=== PATIENT | male | born 1960 | race Caucasian/White ===

== ENCOUNTER → 2016-08-08 | Outpatient (CLI) | payer MEDICARE, OTHER | LOC: KOH-I 15:00 | DX: M25.511 Pain in right shoulder (principal); M75.111 Incomplete rotator cuff tear or rupture of right shoulder, not specified as traumatic | CPT/HCPCS: 73221 ==

== ENCOUNTER → 2020-05-06 | Outpatient (CLI) | payer MEDICARE, OTHER ==
[2020-05-06 15:47] LABS: HEMOGLOBIN 16.1 gm/dl (14.0-17.5); RED BLOOD COUNT 5.23 M/UL (4.20-5.50); WHITE BLOOD COUNT 11.6 K/UL (4.5-11.0)
== END ==
LOC: US 05-05 11:00
PROVIDERS: Internal Medicine Nephrology
DX: E78.5 Hyperlipidemia, unspecified (principal); N18.2 Chronic kidney disease, stage 2 (mild); E55.9 Vitamin D deficiency, unspecified; N28.1 Cyst of kidney, acquired; K76.0 Fatty (change of) liver, not elsewhere classified
CPT/HCPCS: 36415; 80053; 82550; 82570; 83970; 84100; 84156; 85027

== ENCOUNTER 2021-03-23 18:19 | Inpatient (IN) | payer MEDICARE, OTHER ==
[~2021-03-23] VITALS: Ht 172.7 cm; Wt 75.0 kg
[2021-03-23 19:44] LABS: HEMOGLOBIN 16.3 gm/dl (14.0-17.5); RED BLOOD COUNT 5.65 M/UL (4.20-5.50); WHITE BLOOD COUNT 10.1 K/UL (4.5-11.0)
[2021-03-23 19:52] LABS: BORDETELLA PARAPERTUSSIS Not Detected (Not Detectd); BORDETELLA PERTUSSIS Not Detected (Not Detectd); CHLAMYDIA PNEUMONIAE Not Detected (Not Detectd); CORONAVIRUS HKU1 Not Detected (Not Detectd); CORONAVIRUS NL63 Not Detected (Not Detectd); CORONAVIRUS OC43 Not Detected (Not Detectd); CORONOAVIRUS 229E Not Detected (Not Detectd); HUMAN METAPNEUMOVIRUS Not Detected (Not Detectd); HUMAN RHINOVIRUS/ENTEROVIRUS Not Detected (Not Detectd); INFLUENZA A Not Detected (Not Detectd); INFLUENZA B Not Detected (Not Detectd); MYCOPLASMA PNEUMONIAE Not Detected (Not Detectd); PARAINFLUENZA VIRUS 1 Not Detected (Not Detectd); PARAINFLUENZA VIRUS 2 Not Detected (Not Detectd); PARAINFLUENZA VIRUS 3 Not Detected (Not Detectd); PARAINFLUENZA VIRUS 4 Not Detected (Not Detectd); RESPIRATORY SYNCYTIAL VIRUS Not Detected (Not Detectd)
[2021-03-23 22:32] LABS: SARS-CoV-2 DETECTED (Not Detectd)
[2021-03-24 02:53] LABS: HEMOGLOBIN 15.5 gm/dl (14.0-17.5); RED BLOOD COUNT 5.12 M/UL (4.20-5.50); WHITE BLOOD COUNT 10.9 K/UL (4.5-11.0)
--- NOTE | 2021-03-24 03:21 | NUR ---
NOTIFIED DR MCINTYRE OF PTS TROPONIN 3.36 AND INCREASING. NO NEW ORDERS AT THIS TIME. VITALS ARE FOLLOWS. [id number].
[2021-03-24] MEDS ORDERED: HYDROCHLOROTHIA25 MG PO (12:52)
[2021-03-24] MEDS ORDERED: PLAVIX 75 MG TA75 MG PO (12:52)
[2021-03-24] MEDS ORDERED: SYNTHROID50 MCG PO (12:52)
[2021-03-24] MEDS ORDERED: TRICOR145 MG PO (12:53)
[2021-03-24] MEDS ORDERED: JANUVIA100 MG PO (12:53)
[2021-03-24] MEDS ORDERED: TRADJENTA5 MG PO (12:53)
[2021-03-24] MEDS ORDERED: NEURONTIN800 MG PO (12:54)
[2021-03-24] MEDS ORDERED: ROPINIROLE HCL4 MG PO (12:55)
[2021-03-24] MEDS ORDERED: ROPINIROLE HCL3 MG PO (12:55)
[2021-03-24] MEDS ORDERED: NORVASC10 MG PO (12:56)
[2021-03-24] MEDS ORDERED: HYDROCODON-ACE1 EAC2 PO (12:56)
[2021-03-24] MEDS ORDERED: ASPIRIN EC81 MG PO (12:56)
[2021-03-24 18:50] LABS: BUN/CREATININE RATIO 28 (0-10)
[2021-03-25 03:25] LABS: HEMOGLOBIN 14.4 gm/dl (14.0-17.5); RED BLOOD COUNT 4.97 M/UL (4.20-5.50); WHITE BLOOD COUNT 10.4 K/UL (4.5-11.0)
[2021-03-25 04:18] LABS: BUN/CREATININE RATIO 32 (0-10)
[2021-03-26 04:15] LABS: HEMOGLOBIN 13.9 gm/dl (14.0-17.5); RED BLOOD COUNT 4.87 M/UL (4.20-5.50); WHITE BLOOD COUNT 8.6 K/UL (4.5-11.0)
[2021-03-26 04:45] LABS: BUN/CREATININE RATIO 35 (0-10)
[2021-03-27 04:04] LABS: HEMOGLOBIN 12.9 gm/dl (14.0-17.5); RED BLOOD COUNT 4.42 M/UL (4.20-5.50); WHITE BLOOD COUNT 7.3 K/UL (4.5-11.0)
[2021-03-27 05:05] LABS: BUN/CREATININE RATIO 27 (0-10)
[2021-03-28 05:03] LABS: HEMOGLOBIN 14.9 gm/dl (14.0-17.5); RED BLOOD COUNT 5.06 M/UL (4.20-5.50); WHITE BLOOD COUNT 9.2 K/UL (4.5-11.0)
[2021-03-28 05:17] LABS: BUN/CREATININE RATIO 30 (0-10)
[2021-03-29 07:22] LABS: HEMOGLOBIN 15.9 gm/dl (14.0-17.5); RED BLOOD COUNT 5.35 M/UL (4.20-5.50); WHITE BLOOD COUNT 10.4 K/UL (4.5-11.0)
[2021-03-30 04:37] LABS: HEMOGLOBIN 16.1 gm/dl (14.0-17.5); RED BLOOD COUNT 5.61 M/UL (4.20-5.50)
[2021-03-31 05:36] LABS: HEMOGLOBIN 15.7 gm/dl (14.0-17.5); RED BLOOD COUNT 5.27 M/UL (4.20-5.50)
[2021-03-31 05:58] LABS: WHITE BLOOD COUNT 14.1 K/UL (4.5-11.0)
[2021-03-31 06:06] LABS: BUN/CREATININE RATIO 37 (0-10)
[2021-04-01 05:18] LABS: RED BLOOD COUNT 5.01 M/UL (4.20-5.50)
[2021-04-01 05:28] LABS: WHITE BLOOD COUNT 19.3 K/UL (4.5-11.0)
[2021-04-01 05:35] LABS: BUN/CREATININE RATIO 41 (0-10)
[2021-04-02 05:46] LABS: HEMOGLOBIN 14.8 gm/dl (14.0-17.5); RED BLOOD COUNT 4.99 M/UL (4.20-5.50)
[2021-04-02 05:50] LABS: WHITE BLOOD COUNT 28.5 K/UL (4.5-11.0)
[2021-04-02 06:09] LABS: BUN/CREATININE RATIO 36 (0-10)
[2021-04-03 05:25] LABS: HEMOGLOBIN 14.7 gm/dl (14.0-17.5); RED BLOOD COUNT 4.95 M/UL (4.20-5.50)
[2021-04-03 05:27] LABS: WHITE BLOOD COUNT 31.4 K/UL (4.5-11.0)
[2021-04-03 06:02] LABS: BUN/CREATININE RATIO 37 (0-10)
[2021-04-04 05:37] LABS: HEMOGLOBIN 15.2 gm/dl (14.0-17.5); RED BLOOD COUNT 5.18 M/UL (4.20-5.50); WHITE BLOOD COUNT 25.6 K/UL (4.5-11.0)
[2021-04-04 05:56] LABS: BUN/CREATININE RATIO 39 (0-10)
[2021-04-05 05:54] LABS: HEMOGLOBIN 14.5 gm/dl (14.0-17.5); RED BLOOD COUNT 4.84 M/UL (4.20-5.50); WHITE BLOOD COUNT 21.7 K/UL (4.5-11.0)
[2021-04-05 06:35] LABS: BUN/CREATININE RATIO 46 (0-10)
--- NOTE | 2021-04-05 17:00 | NUR ---
PT PULLED OUT DOBHOFF WITH SITTER IN ROOM, ATIVAN IV GIVEN
--- NOTE | 2021-04-05 17:30 | NUR ---
DOBHOFF REPLACED, WAITING ON XRAY REPORT
[2021-04-06 03:23] LABS: HEMOGLOBIN 14.4 gm/dl (14.0-17.5); RED BLOOD COUNT 4.89 M/UL (4.20-5.50)
[2021-04-06 03:54] LABS: BUN/CREATININE RATIO 48 (0-10)
[2021-04-09 03:09] LABS: HEMOGLOBIN 13.5 gm/dl (14.0-17.5); RED BLOOD COUNT 4.47 M/UL (4.20-5.50); WHITE BLOOD COUNT 17.4 K/UL (4.5-11.0)
[2021-04-09 03:26] LABS: BUN/CREATININE RATIO 47 (0-10)
[2021-04-10 06:27] LABS: HEMOGLOBIN 14.6 gm/dl (14.0-17.5)
[2021-04-10 06:35] LABS: RED BLOOD COUNT 5.05 M/UL (4.20-5.50); WHITE BLOOD COUNT 28.3 K/UL (4.5-11.0)
[2021-04-10 06:36] LABS: BUN/CREATININE RATIO 57 (0-10)
[2021-04-11 03:05] LABS: WHITE BLOOD COUNT 29.9 K/UL (4.5-11.0)
[2021-04-11 03:12] LABS: RED BLOOD COUNT 4.38 M/UL (4.20-5.50)
[2021-04-11 03:40] LABS: BUN/CREATININE RATIO 58 (0-10)
--- NOTE | 2021-04-11 13:23 | NUR ---
PT SOFT WRIST RESTRAINTS REMOVED AT 1030 AM. PT CALM AND RESTING.
--- NOTE | 2021-04-11 13:24 | NUR ---
1145 PT LETHARGIC, SPO2 80% ON ROOM AIR, CRACKLES NOTED BILATERALLY. PT GURGLING. PT SUCTION SMALL AMOUNT DARK SPUTUM SUCTION.NOTIFIED MD AND FAMILY OF PATIENT CONDITION CHANGES.
--- NOTE | 2021-04-11 13:26 | NUR ---
PT PASSED AT 1247 PM. FAMILY NOTIFIED. RICHARD CALLED.
== END 2021-04-11 15:18 | disposition expired | DRG 871 ==
LOC: ER1 18:19 → PROG CARE 21:10 → CDU 21:10 → CCU 21:10 → PROG CARE 23:16 → CCU 03-27 08:26 → PROG CARE 04-05 15:27
PROVIDERS: Internal Medicine; Internal Medicine Critical Care Medicine; Internal Medicine Infectious Disease; Internal Medicine Pulmonary Disease; Preventive Medicine Occupational Medicine; ADMIT Internal Medicine
PROC: 8E0ZXY6 Isolation (ICD-10-PCS; principal; 2021-03-23)
PROC: XW033E5 Introduction of Remdesivir Anti-infective into Peripheral Vein, Percutaneous Approach, New Technology Group 5 (ICD-10-PCS; 2021-03-23)
PROC: 5A0945A Assistance with Respiratory Ventilation, 24-96 Consecutive Hours, High Flow/Velocity Cannula (ICD-10-PCS; 2021-03-23)
PROC: XW033H5 Introduction of Tocilizumab into Peripheral Vein, Percutaneous Approach, New Technology Group 5 (ICD-10-PCS; 2021-03-24)
PROC: 3E0333Z Introduction of Anti-inflammatory into Peripheral Vein, Percutaneous Approach (ICD-10-PCS; 2021-03-24)
PROC: 5A09457 Assistance with Respiratory Ventilation, 24-96 Consecutive Hours, Continuous Positive Airway Pressure (ICD-10-PCS; 2021-03-26)
PROC: B24BZZZ Ultrasonography of Heart with Aorta (ICD-10-PCS; 2021-03-29)
PROC: 0DH67UZ Insertion of Feeding Device into Stomach, Via Natural or Artificial Opening (ICD-10-PCS; 2021-03-30)
PROC: 3E0G76Z Introduction of Nutritional Substance into Upper GI, Via Natural or Artificial Opening (ICD-10-PCS; 2021-03-30)
DX: A41.89 Other specified sepsis (principal); U07.1 COVID-19; J12.82 Pneumonia due to coronavirus disease 2019; Z66 Do not resuscitate; I21.A1 Myocardial infarction type 2; J80 Acute respiratory distress syndrome; J15.9 Unspecified bacterial pneumonia; B37.1 Pulmonary candidiasis; G93.41 Metabolic encephalopathy; J44.0 Chronic obstructive pulmonary disease with (acute) lower respiratory infection; I13.0 Hypertensive heart and chronic kidney disease with heart failure and stage 1 through stage 4 chronic kidney disease, or unspecified chronic kidney disease; N17.9 Acute kidney failure, unspecified; E87.2 Acidosis; J90 Pleural effusion, not elsewhere classified; I50.22 Chronic systolic (congestive) heart failure; I42.9 Cardiomyopathy, unspecified; E87.0 Hyperosmolality and hypernatremia; K31.84 Gastroparesis; E78.5 Hyperlipidemia, unspecified; E11.65 Type 2 diabetes mellitus with hyperglycemia; R65.20 Severe sepsis without septic shock; L89.322 Pressure ulcer of left buttock, stage 2; L89.312 Pressure ulcer of right buttock, stage 2; E11.43 Type 2 diabetes mellitus with diabetic autonomic (poly)neuropathy; I08.3 Combined rheumatic disorders of mitral, aortic and tricuspid valves; T38.0X5A Adverse effect of glucocorticoids and synthetic analogues, initial encounter; I25.10 Atherosclerotic heart disease of native coronary artery without angina pectoris; K52.9 Noninfective gastroenteritis and colitis, unspecified; E11.51 Type 2 diabetes mellitus with diabetic peripheral angiopathy without gangrene; N18.30 Chronic kidney disease, stage 3 unspecified; R13.10 Dysphagia, unspecified; F17.210 Nicotine dependence, cigarettes, uncomplicated; Z95.1 Presence of aortocoronary bypass graft; Z88.0 Allergy status to penicillin; Z99.81 Dependence on supplemental oxygen; Z79.4 Long term (current) use of insulin; Z95.820 Peripheral vascular angioplasty status with implants and grafts; Z86.73 Personal history of transient ischemic attack (TIA), and cerebral infarction without residual deficits; Z82.49 Family history of ischemic heart disease and other diseases of the circulatory system; Z95.5 Presence of coronary angioplasty implant and graft; Z23 Encounter for immunization
CPT/HCPCS: 36415; 36600; 70450; 71045; 71275; 74018; 80048; 80053; 80061; 80202; 81001; 82140; 82436; 82550; 82553; 82570; 82728; 82803; 82962; 83605; 83690; 83735; 83874; 83880; 83930; 84100; 84133; 84156; 84300; 84484; 85025; 85379; 85384; 85610; 85652; 85730; 86140; 87040; 87081; 87086; 87633; 92526; 92610; 93005; 93925; 93970; 94640; 94660; 94664; 94760; 96374; 96375; 97161; 97167; 99285; A6212; C9113; J0248; J0360; J0456; J0696; J1100; J1630; J1644; J1650; J1940; J2060; J2185; J2248; J2270; J2405; J2550; J2765; J3370; J3486; J7030; J7040; J7050; J7070; Q0249; Q9963; Q9967